=== PATIENT | female | born 1945 | race Caucasian/White ===

== ENCOUNTER 2016-06-27 13:29 | Outpatient (CLI) | payer MEDICARE, OTHER ==
[2016-06-27 16:20] LABS: Cardiac Risk 2.5 (Less than 4.5)
== END 2016-06-27 13:30 | disposition home or self-care (01) ==
LOC: NAVSJIPCSP 13:29
PROVIDERS: ATTEND Internal Medicine Cardiovascular Disease
DX: E78.00 Pure hypercholesterolemia, unspecified (principal)
CPT/HCPCS: 80061; 84443

== ENCOUNTER 2016-07-26 11:24 | Outpatient (CLI) | payer MEDICARE, OTHER ==
[2016-07-26 12:57] LABS: Anion Gap 17 mmol/L (10-20); BUN (Urea Nitrogen) 29 mg/dL (9.8-20.1); Calc. Creatinine Clearance 0 mL/min (70-130); Calcium 9.5 mg/dL (7.8-10.44); Carbon Dioxide 25 mmol/L (23-31); Chloride 105 mmol/L (98-107); Estimated GFR-MDRD 58; Glucose 115 mg/dL (83-110); Potassium 3.8 mmol/L (3.5-5.1); Sodium 143 mmol/L (136-145)
== END 2016-07-26 11:25 | disposition home or self-care (01) ==
LOC: NAVSJIPCSP 11:24
PROVIDERS: ATTEND Internal Medicine Cardiovascular Disease
DX: R60.0 Localized edema (principal)